=== PATIENT | female | born 1940 | race Caucasian/White ===

== ENCOUNTER 2016-07-31 15:02 | Observation (INO) | payer OTHER ==
[~2016-07-31] VITALS: Ht 154.9 cm; Wt 71.6 kg
[~2016-07-31 15:02] MED LIST: AFRIN,GENASAL D15 ML BOTH NARES; AMLOD-VALSA-HC1 EAC2 PO; AMLODIPINE BESY10 MG PO; ARICEPT10 MG PO; BACTRIM,SEPT1 TABLE1 PO; CALCIUM 600 +1 EAC3 PO; CEFTIN250 MG PO; CEPHALEXIN500 M1 PO; CIPRO250 MG PO; CIPRO500 MG PO; CLOPIDOGREL75 MG PO; CRESTOR20 MG PO; CYANOCOBALAM1000 MCG PO; DAILY VITAMIN1 EAC8 PO; DETROL LA4 MG PO; DONEPEZIL HCL10 MG PO; DUONEB 2.5-0.5 M3 ML AEROSOL; ELIQUIS5 MG PO; EXFORGE 10/11 TABLET PO; EXFORGE 5/161 TABLET PO; EXFORGE HCT 5-1 EACH PO; EXFORGE PO; FENOFIBRATE48 MG PO; FLAGYL500 MG PO; HYDROCHLOROTH12.5 M3 PO; HYDROCHLOROTHIA25 MG PO; KEFLEX500 MG PO; LEVAQUIN500 MG PO; LITE COAT ASPI325 M1 PO; LOSARTAN POTAS100 MG PO; Levaquin PO; MACRODANTIN100 MG PO; MACRODANTIN50 M1 PO; METOPROLOL SUCC25 MG PO; METOPROLOL TART50 MG PO; MULTIVITAMINS1 EA11 PO; NAMENDA XR28 MG PO; NAPROSYN500 MG PO; NITROFURANTOIN100 MG PO; NITROFURANTOIN50 MG PO; NORVASC5 MG PO; OMEPRAZOLE20 MG PO; Oscal 500 w/Vitamin PO; PAROXETINE HCL10 MG PO; PLAVIX75 MG PO; PRILOSEC20 MG PO; PROTONIX40 MG PO; SIMVASTATIN40 MG PO; TOLTERODINE TART4 MG PO; TOPROL XL25 MG PO; TUMS500 MG PO; TYLENOL PM EX-1 EACH PO; VALSARTAN160 MG PO; ZOCOR20 MG PO; ZOCOR40 MG PO
[2016-07-31 16:00] LABS: EOSINOPHIL (%) 0.6 % (0-5); HEMATOCRIT 38.8 % (36.0-46.0); IMMATURE GRANULOCYTE (%) 0.2 % (0.0-0.7); IMMATURE GRANULOCYTE COUNT 0.1 K/uL; LYMPHOCYTE COUNT 0.7 K/uL (1.0-2.8); MCHC 32.5 G/DL (30.0-36.0); MCV 83.3 FL (83-99); MEAN PLAT.VOLUME 11.3 uM^3 (9.5-12.4); MONOCYTE (%) 12.7 % (3-12); MONOCYTE COUNT 0.6 K/uL (0-0.8); NEUTROPHIL (%) 71.4 % (45-76); NEUTROPHIL COUNT 3.6 K/uL (1.8-6.4); PLATELET COUNT 214 K/uL (156-360); RBC DIS.WIDTH-CV 13.5 % (11.8-14.6); RBC DIS.WIDTH-SD 39.9 % (39-53); RED BLOOD COUNT 4.66 M/uL (3.80-5.20)
[2016-07-31 16:11] LABS: INTER. NORMALIZED RATIO 1.2; PTT 25.6 (25-32)
[2016-07-31 16:14] LABS: CHLORIDE 101 mEq/L (99-109); POTASSIUM 3.8 mEq/L (3.7-5.4); SODIUM 136 mEq/L (136-147)
[2016-07-31 16:16] LABS: GLUCOSE 101 mg/dL (70-99)
[2016-07-31 16:17] LABS: ANION GAP 12 MEQ/L (2-14)
[2016-07-31 16:20] LABS: GFR ESTIMATE (CALCULATED) 36 mL/min/
[2016-07-31 16:21] LABS: UREA NITROGEN (BUN) 18 mg/dL (9-23)
[2016-07-31 16:24] LABS: TROP-I INTERPRETATION NEGATIVE; TROPONIN-I < 0.01 ng/mL (0.0-0.30)
[2016-07-31 16:47] LABS: HDL CHOLESTEROL 50 MG/DL (Desirable>=50); LDL CHOLESTEROL 98 mg/dL (Desirable<100); NON-HDL CHOLESTEROL 118 mg/dL (Desirable<160); TOTAL CHOLESTEROL 168 mg/dL (Desirable<200); TRIGLYCERIDES 99 MG/DL (Normal: <150)
[2016-07-31 17:19] LABS: Estimated Average Glucose 123 mg/dL (70-123); HEMOGLOBIN A1c (GLYCOHEMOGLOB) 5.9 % HGB (Below 5.7)
[2016-07-31] MEDS ORDERED: PAROXETINE HCL10 MG PO (18:38)
[2016-07-31] MEDS ORDERED: ARICEPT10 MG PO (18:38)
[2016-07-31] MEDS ORDERED: SIMVASTATIN40 MG PO (18:41)
[2016-07-31] MEDS ORDERED: FENOFIBRATE160 M1 PO (18:41)
[2016-07-31] MEDS ORDERED: CYANOCOBALAM1000 MCG PO (18:41)
[2016-07-31] MEDS ORDERED: HYDROCHLOROTHIA25 MG PO (18:43)
[2016-07-31] MEDS ORDERED: METOPROLOL SUCC25 MG PO (18:43)
[2016-07-31] MEDS ORDERED: OMEPRAZOLE20 MG PO (18:43)
[2016-07-31] MEDS ORDERED: LITE COAT ASPI325 M1 PO (18:44)
[2016-07-31] MEDS ORDERED: DIOVAN160 MG PO (18:44)
[2016-07-31] MEDS ORDERED: TRIMETHOPRIM100 MG PO (18:44)
[2016-07-31] MEDS ORDERED: ELIQUIS5 MG PO (18:44)
[2016-07-31] MEDS ORDERED: PLAVIX75 MG PO (18:44)
[2016-07-31 20:09] LABS: SERUM ETHYL ALCOHOL < 10 mg/dL
[2016-07-31 20:58] VITALS: BP 121/61
[2016-07-31 22:46] LABS: INFLUENZA A VIRAL ANTIGEN NEGATIVE; INFLUENZA B VIRAL ANTIGEN NEGATIVE
[2016-07-31 23:54] VITALS: BP 122/62
[2016-08-01 04:00] VITALS: BP 118/61
[2016-08-01 08:34] VITALS: BP 149/70
[2016-08-01 11:21] LABS: ANION GAP 12 MEQ/L (2-14); CHLORIDE 103 MEQ/L (99-109); POTASSIUM 4.1 MEQ/L (3.7-5.4); SAMPLE HEMOLYSIS CHECK 0; SAMPLE ICTERIC CHECK 0; SAMPLE LIPEMIA CHECK 0; SODIUM 140 MEQ/L (136-147)
[2016-08-01 11:27] LABS: GFR ESTIMATE (CALCULATED) 39 mL/min/; GLUCOSE 96 mg/dL (70-99); UREA NITROGEN (BUN) 17 mg/dL (9-23)
[2016-08-01 12:32] VITALS: BP 119/58
[2016-08-01 13:40] LABS: ADD MIUA? YES; BILIRUBIN NEGATIVE; BLOOD TRACE; COLOR YELLOW ((YELLOW)); GLUCOSE (STRIP) NEGATIVE; KETONES NEGATIVE; LEUKOCYTES NEGATIVE; NITRITE POSITIVE; PROTEIN (STRIP) NEGATIVE; SPECIFIC GRAVITY 1.018 (1.000-1.030)
[2016-08-01 13:43] LABS: BACTERIA 3+; CASTS NONE SEEN /LPF; CRYSTALS NONE SEEN; EPITHELIAL CELLS 1+; MUCUS NONE SEEN; PATHOLOGICAL CAST NONE SEEN; RED BLOOD CELLS TNTC /HPF (0-5); SMALL ROUND CELL NONE SEEN; UCUL ADDED? YES; YEAST-LIKE CELL NONE SEEN
[2016-08-01 13:49] LABS: AMPHETAMINES QUANT VALUE 0 NG/ML; BARBITUATES QUANT VALUE 0 NG/ML; BENZODIAZEPINES QUANT VALUE 0 NG/ML; BENZODIAZEPINES, URINE SCREEN Negative (200 ng/mL); MARIJUANA QUANT VALUE 0 NG/ML; OPIATES QUANTITATIVE VALUE 0 NG/ML; PHENCYCLIDINE QUANT VALUE 0 NG/ML
[2016-08-01 16:30] VITALS: BP 194/79
[2016-08-01 20:00] VITALS: BP 143/73
[2016-08-02] VITALS: BP 142/76
[2016-08-02 04:00] VITALS: BP 134/64
[2016-08-02 06:47] LABS: ANION GAP 9 MEQ/L (2-14); CHLORIDE 102 MEQ/L (99-109); GFR ESTIMATE (CALCULATED) 36 mL/min/; GLUCOSE 90 mg/dL (70-99); MAGNESIUM 1.7 mg/dl (1.3-2.7); POTASSIUM 3.7 MEQ/L (3.7-5.4); SAMPLE HEMOLYSIS CHECK 0; SAMPLE ICTERIC CHECK 0; SAMPLE LIPEMIA CHECK 0; SODIUM 138 MEQ/L (136-147); UREA NITROGEN (BUN) 19 mg/dL (9-23)
[2016-08-02 06:48] LABS: HEMATOCRIT 34.7 % (36.0-46.0); MCH 27.3 PG (29.0-34.0); MCHC 31.4 G/DL (30.0-36.0); MCV 86.8 FL (83-99); MEAN PLAT.VOLUME 11.8 uM^3 (9.5-12.4); PLATELET COUNT 176 K/uL (156-360); RBC DIS.WIDTH-CV 14.1 % (11.8-14.6); RBC DIS.WIDTH-SD 44.6 % (39-53)
[2016-08-02 06:52] LABS: WHITE BLOOD COUNT 3.2 K/uL (4.1-10.2)
[2016-08-02 08:10] VITALS: BP 138/74
[2016-08-02 13:04] VITALS: BP 133/62
[2016-08-02] MEDS ORDERED: AZITHROMYCIN500 M1 PO (14:30)
[2016-08-02] MEDS ORDERED: CEFTIN500 MG PO (14:30)
[2016-08-02] MEDS ORDERED: PREDNISONE20 MG PO (14:32)
[2016-08-02] MEDS ORDERED: PREDNISONE10 MG PO (14:32)
[2016-08-02] MEDS ORDERED: DUONEB 2.5-0.5 M3 ML AEROSOL (14:32)
[2016-08-02] MEDS ORDERED: TESSALON PERLE100 MG PO (14:38)
== END 2016-08-02 16:53 | disposition home or self-care (01) ==
LOC: EME → EDBD 15:02 → EDOF 19:25 → 5WEST 20:41
PROVIDERS: Emergency Medicine; Internal Medicine; Physician Assistant Medical
DX: R41.0 Disorientation, unspecified (principal); J20.9 Acute bronchitis, unspecified; N39.0 Urinary tract infection, site not specified; F03.90 Unspecified dementia, unspecified severity, without behavioral disturbance, psychotic disturbance, mood disturbance, and anxiety; R06.2 Wheezing; R94.31 Abnormal electrocardiogram [ECG] [EKG]; Z86.73 Personal history of transient ischemic attack (TIA), and cerebral infarction without residual deficits; Z86.718 Personal history of other venous thrombosis and embolism; I13.0 Hypertensive heart and chronic kidney disease with heart failure and stage 1 through stage 4 chronic kidney disease, or unspecified chronic kidney disease; N18.3 Chronic kidney disease, stage 3 (moderate); E78.5 Hyperlipidemia, unspecified; Z82.49 Family history of ischemic heart disease and other diseases of the circulatory system; E73.9 Lactose intolerance, unspecified; Z79.82 Long term (current) use of aspirin; Z79.02 Long term (current) use of antithrombotics/antiplatelets
CPT/HCPCS: 70450; 70551; 71020; 71250; 80048; 80061; 81003; 82607; 83036; 83605; 83735; 83880; 84443; 84484; 85025; 85027; 85610; 85730; 87077; 87086; 87186; 87502; 93005; 94640; 94640 76; 94760; 94799; 99202; 99281; 99285; G0378; G0480; J0696; J7030; J7050; J7512; J7644

== ENCOUNTER 2016-08-07 11:01 | Emergency (ER) | payer OTHER ==
[~2016-08-07] VITALS: Ht 154.9 cm; Wt 73.0 kg
[~2016-08-07 11:01] MED LIST changes: +AZITHROMYCIN500 M1 PO; +CEFTIN500 MG PO; +DIOVAN160 MG PO; +FENOFIBRATE160 M1 PO; +PREDNISONE10 MG PO; +PREDNISONE20 MG PO; +TESSALON PERLE100 MG PO; +TRIMETHOPRIM100 MG PO
[2016-08-07 12:30] LABS: HEMATOCRIT 39.4 % (36.0-46.0); MCH 27.7 PG (29.0-34.0); MCHC 32.7 G/DL (30.0-36.0); MCV 84.5 FL (83-99); MEAN PLAT.VOLUME 11.7 uM^3 (9.5-12.4); PLATELET COUNT 222 K/uL (156-360); RBC DIS.WIDTH-CV 13.4 % (11.8-14.6); RBC DIS.WIDTH-SD 40.7 % (39-53); RED BLOOD COUNT 4.66 M/uL (3.80-5.20)
[2016-08-07 12:32] LABS: WHITE BLOOD COUNT 6.6 K/uL (4.1-10.2)
[2016-08-07 12:43] LABS: CHLORIDE 106 mEq/L (99-109); POTASSIUM 3.6 mEq/L (3.7-5.4); SODIUM 141 mEq/L (136-147)
[2016-08-07 12:45] LABS: GLUCOSE 117 mg/dL (70-99)
[2016-08-07 12:46] LABS: ANION GAP 10 MEQ/L (2-14)
[2016-08-07 12:49] LABS: GFR ESTIMATE (CALCULATED) 42 mL/min/
[2016-08-07 12:51] LABS: UREA NITROGEN (BUN) 32 mg/dL (9-23)
[2016-08-07 13:00] LABS: BILIRUBIN NEGATIVE; BLOOD NEGATIVE; COLOR YELLOW ((YELLOW)); GLUCOSE (STRIP) NEGATIVE; KETONES NEGATIVE; LEUKOCYTES NEGATIVE; NITRITE NEGATIVE; PROTEIN (STRIP) NEGATIVE; SPECIFIC GRAVITY 1.024 (1.000-1.030); UROBILINOGEN 0.2 MG/DL (0.2-1.0)
[2016-08-07 13:04] LABS: ADD MIUA? NO; UCUL ADDED? NO
[2016-08-07 15:10] LABS: TROP-I INTERPRETATION NEGATIVE; TROPONIN-I < 0.01 ng/mL (0.0-0.30)
[2016-08-07 17:23] VITALS: BP 154/64
== END 2016-08-07 17:25 | disposition home or self-care (01) ==
LOC: EME 11:01
PROVIDERS: Emergency Medicine
DX: R53.1 Weakness (principal); W18.2XXA Fall in (into) shower or empty bathtub, initial encounter; I10 Essential (primary) hypertension; K21.9 Gastro-esophageal reflux disease without esophagitis; Z86.73 Personal history of transient ischemic attack (TIA), and cerebral infarction without residual deficits; F03.90 Unspecified dementia, unspecified severity, without behavioral disturbance, psychotic disturbance, mood disturbance, and anxiety
CPT/HCPCS: 70450; 71020; 80048; 81003; 84484; 85027; 99281; 99285; J7030

== ENCOUNTER 2016-09-06 21:44 | Emergency (ER) | payer OTHER ==
[~2016-09-06] VITALS: Ht 162.6 cm; Wt 73.4 kg
[2016-09-06 22:37] LABS: HEMATOCRIT 34.8 % (36.0-46.0); MCH 27.2 PG (29.0-34.0); MCHC 32.5 G/DL (30.0-36.0); MCV 83.7 FL (83-99); PLATELET COUNT 230 K/uL (156-360); RBC DIS.WIDTH-CV 13.6 % (11.8-14.6); RBC DIS.WIDTH-SD 40.1 % (39-53); RED BLOOD COUNT 4.16 M/uL (3.80-5.20); WHITE BLOOD COUNT 4.1 K/uL (4.1-10.2)
[2016-09-06 22:43] LABS: CHLORIDE 106 mEq/L (99-109); POTASSIUM 3.6 mEq/L (3.7-5.4); SODIUM 140 mEq/L (136-147)
[2016-09-06 22:47] LABS: ANION GAP 9 MEQ/L (2-14); TOTAL BILIRUBIN 0.3 mg/dL (0.0-1.0)
[2016-09-06 22:49] LABS: ALKALINE PHOSPHATASE 50 IU/L (3-129); GFR ESTIMATE (CALCULATED) 42 mL/min/
[2016-09-06 22:50] LABS: UREA NITROGEN (BUN) 20 mg/dL (9-23)
[2016-09-06 23:10] LABS: TROP-I INTERPRETATION NEGATIVE; TROPONIN-I < 0.01 ng/mL (0.0-0.30)
[2016-09-06 23:20] LABS: GLUCOSE 95 mg/dL (70-99)
[2016-09-06 23:27] LABS: LIPASE 38 U/L (1.0-51.0)
[2016-09-06 23:51] LABS: ADD MIUA? YES; BILIRUBIN NEGATIVE; BLOOD NEGATIVE; COLOR YELLOW ((YELLOW)); GLUCOSE (STRIP) NEGATIVE; KETONES NEGATIVE; LEUKOCYTES LARGE; NITRITE POSITIVE; PROTEIN (STRIP) NEGATIVE; UROBILINOGEN 0.2 MG/DL (0.2-1.0)
[2016-09-07 00:05] LABS: BACTERIA 2+ /HPF; EPITHELIAL CELLS RARE /HPF; MUCUS TRACE /LPF; UCUL ADDED? YES; WHITE BLOOD CELLS TNTC /HPF (0-5)
[2016-09-07] MEDS ORDERED: CIPRO500 MG PO (00:48)
[2016-09-07 01:20] VITALS: BP 150/81
== END 2016-09-07 01:21 | disposition home or self-care (01) ==
LOC: EME 21:44
DX: N30.90 Cystitis, unspecified without hematuria (principal); I10 Essential (primary) hypertension; D64.9 Anemia, unspecified; Z91.81 History of falling; F03.90 Unspecified dementia, unspecified severity, without behavioral disturbance, psychotic disturbance, mood disturbance, and anxiety; K21.9 Gastro-esophageal reflux disease without esophagitis; Z86.73 Personal history of transient ischemic attack (TIA), and cerebral infarction without residual deficits; Z87.440 Personal history of urinary (tract) infections; Z91.011 Allergy to milk products
CPT/HCPCS: 70450; 71010; 80053; 81003; 83690; 84484; 85027; 87077; 87086; 87186; 93005; 99281; 99284

== ENCOUNTER 2017-03-06 08:50 | Inpatient (IN) | payer OTHER ==
[~2017-03-06] VITALS: Ht 154.9 cm; Wt 68.5 kg
[~2017-03-06 08:50] MED LIST changes: -DIOVAN160 MG PO; -FENOFIBRATE160 M1 PO; +KEPPRA250 MG PO; +VITAMIN B122500 MCG PO
[2017-03-06 09:41] LABS: EOSINOPHIL COUNT 0.1 K/uL (0-0.3); HEMATOCRIT 37.3 % (36.0-46.0); IMMATURE GRANULOCYTE (%) 0.2 % (0.0-0.7); INSTRUMENT ABS NEUTROPHIL CT 2.8 K/uL; LYMPHOCYTE COUNT 0.9 K/uL (1.0-2.8); MCH 25.7 PG (29.0-34.0); MCHC 31.6 G/DL (30.0-36.0); MCV 81.3 FL (83-99); MONOCYTE COUNT 0.6 K/uL (0-0.8); NEUTROPHIL (%) 62.6 % (45-76); NEUTROPHIL COUNT 2.8 K/uL (1.8-6.4); PLATELET COUNT 196 K/uL (156-360); RBC DIS.WIDTH-CV 14.6 % (11.8-14.6); RED BLOOD COUNT 4.59 M/uL (3.80-5.20); WHITE BLOOD COUNT 4.4 K/uL (4.1-10.2)
[2017-03-06 09:55] LABS: CHLORIDE 104 mEq/L (99-109); POTASSIUM 3.8 mEq/L (3.7-5.4); SODIUM 139 mEq/L (136-147)
[2017-03-06 09:57] LABS: GLUCOSE 96 mg/dL (70-99)
[2017-03-06 09:58] LABS: ANION GAP 10 MEQ/L (2-14)
[2017-03-06 09:59] LABS: TOTAL BILIRUBIN 0.4 mg/dL (0.0-1.0)
[2017-03-06 10:00] LABS: ALKALINE PHOSPHATASE 58 IU/L (3-129)
[2017-03-06 10:01] LABS: GFR ESTIMATE (CALCULATED) 42 mL/min/
[2017-03-06 10:02] LABS: UREA NITROGEN (BUN) 17 mg/dL (9-23)
[2017-03-06 10:06] LABS: TROP-I INTERPRETATION NEGATIVE; TROPONIN-I < 0.01 ng/mL (0.0-0.30)
[2017-03-06 10:40] LABS: ADD MIUA? YES; BILIRUBIN NEGATIVE; BLOOD NEGATIVE; COLOR YELLOW ((YELLOW)); GLUCOSE (STRIP) NEGATIVE; KETONES NEGATIVE; LEUKOCYTES LARGE; NITRITE NEGATIVE; PROTEIN (STRIP) NEGATIVE; UROBILINOGEN 0.2 MG/DL (0.2-1.0)
[2017-03-06 11:00] LABS: UCUL ADDED? YES; WHITE BLOOD CELLS TNTC /HPF (0-5)
[2017-03-06 16:05] VITALS: BP 162/64
[2017-03-06 19:42] VITALS: BP 122/64
[2017-03-07] VITALS (8 sets, daily range): BP systolic 142–193; BP diastolic 66–84
[2017-03-07 05:45] LABS: HEMATOCRIT 34.5 % (36.0-46.0); MCH 25.6 PG (29.0-34.0); MCV 82.5 FL (83-99); MEAN PLAT.VOLUME 11.5 uM^3 (9.5-12.4); PLATELET COUNT 182 K/uL (156-360); RBC DIS.WIDTH-CV 14.6 % (11.8-14.6); RBC DIS.WIDTH-SD 43.5 % (39-53); RED BLOOD COUNT 4.18 M/uL (3.80-5.20); WHITE BLOOD COUNT 3.2 K/uL (4.1-10.2)
[2017-03-07 06:16] LABS: ANION GAP 9 MEQ/L (2-14); CHLORIDE 108 MEQ/L (99-109); GFR ESTIMATE (CALCULATED) 46 mL/min/; GLUCOSE 74 mg/dL (70-99); POTASSIUM 3.8 MEQ/L (3.7-5.4); SAMPLE HEMOLYSIS CHECK 0; SAMPLE ICTERIC CHECK 0; SAMPLE LIPEMIA CHECK 0; SODIUM 142 MEQ/L (136-147); UREA NITROGEN (BUN) 12 mg/dL (9-23)
[2017-03-08 07:28] LABS: MCH 26.2 PG (29.0-34.0); MCHC 32.1 G/DL (30.0-36.0); MCV 81.7 FL (83-99); MEAN PLAT.VOLUME 10.6 uM^3 (9.5-12.4); PLATELET COUNT 193 K/uL (156-360); RBC DIS.WIDTH-CV 14.2 % (11.8-14.6); RBC DIS.WIDTH-SD 42.5 % (39-53); RED BLOOD COUNT 4.16 M/uL (3.80-5.20); WHITE BLOOD COUNT 3.4 K/uL (4.1-10.2)
[2017-03-08 07:50] VITALS: BP 163/70
[2017-03-08 08:10] LABS: ANION GAP 6 MEQ/L (2-14); CHLORIDE 107 MEQ/L (99-109); GFR ESTIMATE (CALCULATED) 51 mL/min/; IRON 40 MCG/DL (35-150); POTASSIUM 3.6 MEQ/L (3.7-5.4); SAMPLE HEMOLYSIS CHECK 0; SAMPLE ICTERIC CHECK 0; SAMPLE LIPEMIA CHECK 0; SODIUM 141 MEQ/L (136-147); UREA NITROGEN (BUN) 7 mg/dL (9-23)
[2017-03-08 08:18] LABS: GLUCOSE 118 mg/dL (70-99)
[2017-03-08 09:56] LABS: FERRITIN 37 NG/ML (10-291)
[2017-03-08 11:20] VITALS: BP 175/78
[2017-03-08 14:26] VITALS: BP 161/70
[2017-03-08 15:47] VITALS: BP 162/72
[2017-03-08 18:54] VITALS: BP 167/72
[2017-03-08 23:09] VITALS: BP 134/63
[2017-03-09] VITALS (7 sets, daily range): BP systolic 123–185; BP diastolic 52–80
[2017-03-09 06:40] LABS: ANION GAP 7 MEQ/L (2-14); CHLORIDE 109 MEQ/L (99-109); GFR ESTIMATE (CALCULATED) 39 mL/min/; GLUCOSE 94 mg/dL (70-99); SAMPLE HEMOLYSIS CHECK 0; SAMPLE ICTERIC CHECK 0; SAMPLE LIPEMIA CHECK 0; SODIUM 143 MEQ/L (136-147); UREA NITROGEN (BUN) 9 mg/dL (9-23)
[2017-03-10 03:34] VITALS: BP 182/86
[2017-03-10 07:23] LABS: ANION GAP 7 MEQ/L (2-14); CHLORIDE 108 MEQ/L (99-109); GFR ESTIMATE (CALCULATED) 51 mL/min/; GLUCOSE 88 mg/dL (70-99); POTASSIUM 3.8 MEQ/L (3.7-5.4); SAMPLE HEMOLYSIS CHECK 0; SAMPLE ICTERIC CHECK 0; SAMPLE LIPEMIA CHECK 0; SODIUM 140 MEQ/L (136-147); UREA NITROGEN (BUN) 11 mg/dL (9-23)
[2017-03-10 07:34] VITALS: BP 178/75
[2017-03-10] MEDS ORDERED: KEFLEX250 MG PO (10:49)
[2017-03-10 10:58] VITALS: BP 136/67
[2017-03-10 11:39] VITALS: BP 148/67
== END 2017-03-10 13:06 | DRG 689 ==
LOC: EME 08:50 → EDOF 14:38 → ENRESERV 14:40 → 5WEST 15:45 → 2EAST 03-07 10:27 → 5WEST 03-07 10:27 → ENRESERV 03-07 10:31 → 2EAST 03-07 12:07
PROVIDERS: Emergency Medicine; Hospitalist; Internal Medicine; Nurse Practitioner Adult Health; Physician Assistant Medical
DX: N39.0 Urinary tract infection, site not specified (principal); B96.1 Klebsiella pneumoniae [K. pneumoniae] as the cause of diseases classified elsewhere; E86.0 Dehydration; E87.6 Hypokalemia; G93.40 Encephalopathy, unspecified; I12.9 Hypertensive chronic kidney disease with stage 1 through stage 4 chronic kidney disease, or unspecified chronic kidney disease; N18.3 Chronic kidney disease, stage 3 (moderate); D64.9 Anemia, unspecified; E78.5 Hyperlipidemia, unspecified; G30.9 Alzheimer's disease, unspecified; F02.81 Dementia in other diseases classified elsewhere, unspecified severity, with behavioral disturbance; S09.90XA Unspecified injury of head, initial encounter; W06.XXXA Fall from bed, initial encounter; G40.909 Epilepsy, unspecified, not intractable, without status epilepticus; K21.9 Gastro-esophageal reflux disease without esophagitis; R13.10 Dysphagia, unspecified; F32.9 Major depressive disorder, single episode, unspecified; F41.9 Anxiety disorder, unspecified; R01.1 Cardiac murmur, unspecified; Z86.73 Personal history of transient ischemic attack (TIA), and cerebral infarction without residual deficits; Z91.5 Personal history of self-harm; Z91.81 History of falling; Z86.718 Personal history of other venous thrombosis and embolism
CPT/HCPCS: 70450; 71020; 74230; 80048; 80053; 81003; 82728; 83540; 84466; 84484; 85025; 85027; 87077; 87086; 87186; 92610 GN; 92611 GN; 93005; 93306; 99281; 99284; C9113; G0378; G8987 GO CN; G8988 GO CK; J0696; J1644; J1953; J3480; J7030; J7050